=== PATIENT | female | born 1990 | race Caucasian/White ===

== ENCOUNTER 2023-03-12 08:13 | Outpatient (AMB) | payer OTHER, SELFPAY ==
--- NOTE | 2023-03-12 08:35 | AM.OFFWIN_ITS ---
Intake Vital Signs 03/12/23 08:40 Weight 182 lb BP 120/80 Blood Pressure Location Lt brachial Position Sitting Pulse 84 Pulse Source Pulse Oximeter Temp 97.2 F Temp Source Temporal Artery Scan Pulse Oximetry (%) 97 Oxygen Delivery Method Room Air Intake Visit Reasons: APPOINTMENT CLERK Right Eye Redness Patient Tobacco Use Status: Never used Tobacco Allergies Penicillins [PENICILLINS] Allergy (Intermediate, Verified 03/12/23 08:41) RASH amoxicillin [AMOXICILLIN] Allergy (Unknown, Verified 03/12/23 08:41) RASH penicillin V Allergy (Unknown, Verified 03/12/23 08:41) Rash Do you need a note to return to daycare/school/sports/work: Yes HPI APPOINTMENT CLERK Right Eye Redness HPI Details 32-year-old female patient presents toda y with redness right greater than left. This started about 3 days ago, without any inciting events. Left eye started with similar symptoms yesterday. She reports eyes are slightly itchy, however denies pain. Denies any photophobia or vision changes. Is not a contact wearer. She was thinking that this could be allergies, and has been taking [id number] allergy medication and eyedrops without relief. [facility] Social History Patient Tobacco Use Status: Never used Tobacco Review of Systems Const All systems reviewed & are unremarkable except as noted in HPI and below Physical Exam Vital Signs: Last Vital Signs Temp 97.2 F 03/12/23 08:40 Pulse 84 03/12/23 08:40 BP 120/80 03/12/23 08:40 Pulse Ox 97 03/12/23 08:40 Oxygen Delivery Method Room Air 03/12/23 08:40 Const General: cooperative and healthy appearing HEENT Head: Yes normal to inspection Eyes Visual Schmitt: normal visual schmitt by confrontation Alignment and Position: alignment normal Eyelids: Yes eyelids normal Conjunctivae: conjunctival abnormal bilateral conjunctival injection (R>L) diffuse Pupils: Equal, round and reactive pupils present and Pupil accommodation reflex normal EOM: EOMs intact bilaterally Direct Ophthalmoscopy: normal light reflex and no photophobia Neck Neck: Yes no lymphadenopathy Resp Effort & Inspection: normal respiratory effort and able to speak in complete sentences Skin General skin exam: no rashes or lesions noted Neuro Cranial nerves: Yes Equal, round and reactive pupils present Psych Appearance: grossly normal Mental Status: mental status grossly normal Speech and movement: Normal speech and movement present Assessment & Plan Assessment & Plan (1) Conjunctivitis: Code(s): H10.9 - Unspecified conjunctivitis Qualifiers: Conjunctivitis type: acute Acute conjunctivitis type: unspecified Laterality: bilateral Qualified Code(s): H10.33 - Unspecified acute conjunctivitis, bilateral Plan: Patient has a bilateral conjunctivitis right greater than left. She has very minimal discharge, and is not purulent. She has tried oral and otic decongestants/allergy medications without relief. I will see if she improves with Ofloxacin drops. She can also continue lubricating drops as needed. If she develops any worsening redness, or develops any pain, purulent discharge, photophobia, or vision changes, she should return to clinic or contact her inlayer silver for evaluation. She agrees to plan. Work note provided. Medications: New ofloxacin 0.3% 1 drp ophthalmic (eye) QID 10 mL 0RF H10.33 - Unspecified acute conjunctivitis, bilateral Coding Level of Care Code Est Pt Level 3 (57602) Diagnoses Acute conjunctivitis of both eyes, unspecified acute conjunctivitis type H10.33 Conjunctivitis type: acute Acute conjunctivitis type: unspecified Laterality: bilateral
[2023-03-12 08:40] VITALS: BP 120/80; PULSE 84; TEMP 36.2; O2SAT 97
== END 2023-03-12 09:03 | disposition home or self-care (01) ==
PROVIDERS: PCP Internal Medicine; Visit Provider Nurse Practitioner Family
DX: H10.33 Unspecified acute conjunctivitis, bilateral (principal)
CPT/HCPCS: 99213

== ENCOUNTER 2023-06-13 13:11 | Outpatient (REF) | payer OTHER, SELFPAY ==
--- NOTE | ~2023-06-13 | XR_ITS ---
EXAMINATION: XR FOOT, RIGHT CLINICAL INFORMATION: Pain from third through fifth metatarsal. COMPARISON: None available. TECHNIQUE: AP, lateral, and oblique views of the right foot. FINDINGS: The ankle mortise and subtalar joints are normal. There is no evidence of stress fracture, cortical irregularity or periosteal thickening. The soft tissues are normal. The ankle mortise and subtalar joint is normal. XR/XR foot RT min 3V IMPRESSION: Unremarkable right foot exam.
== END 2023-06-13 13:12 | disposition home or self-care (01) ==
LOC: HO.XRAY 13:11
PROVIDERS: PCP Internal Medicine; Visit Provider Internal Medicine
DX: M79.671 Pain in right foot (principal)
CPT/HCPCS: 73630

== ENCOUNTER 2023-06-19 08:04 | Outpatient (AMB) | payer OTHER, SELFPAY ==
--- NOTE | 2023-06-19 08:07 | AM.OFFWIN_ITS ---
Intake Vital Signs 06/19/23 08:14 Height 5 ft 9 in Weight 182 lb BMI 26.9 BP 122/74 Blood Pressure Location Lt brachial Position Sitting Pulse 83 Pulse Source Pulse Oximeter Temp 98.6 F Temp Source Oral Pulse Oximetry (%) 98 Intake Visit Reasons: EST/persistant cough (lobby masked) Intake Note: pt is here for c.o consistent cough and getting worse 1xmonth, had a fever 101 Patient Tobacco Use Status: Never used Tobacco Allergies Penicillins [PENICILLINS] Allergy (Intermediate, Verified 06/19/23 08:14) RASH amoxicillin [AMOXICILLIN] Allergy (Unknown, Verified 06/19/23 08:14) RASH penicillin V Allergy (Unknown, Verified 06/19/23 08:14) Rash Do you need a note to return to daycare/school/sports/work: Yes HPI HPI Comments History of Present Illness Details 32 female patient presents to walk in [facility] with c/o persistent cough x 1 week. [facility] Social History Patient Tobacco Use Status: Never used Tobacco Review of Systems Const All systems reviewed & are unremarkable except as noted in HPI and below Physical Exam Vital Signs: Last Vital Signs Temp 98.6 F 06/19/23 08:14 Pulse 83 06/19/23 08:14 BP 122/74 06/19/23 08:14 Pulse Ox 98 06/19/23 08:14 BMI result Body Mass Index 26.9 Const General: comfortable HEENT Head: Yes normocephalic Ears: external ears normal and TM's normal bilaterally General nose exam: Normal nares present and No nasal discharge present Face and sinus: Yes sinuses nontender Mouth: moist mucous membranes Throat: Yes posterior oropharynx normal Resp Effort & Inspection: normal respiratory effort, no audible wheezes and Actively coughing Auscultation: clear to auscultation bilaterally Cardio Rate: regular rate Rhythm: regular rhythm Assessment & Plan Assessment & Plan (1) Cough in adult: Code(s): R05.9 - Cough, unspecified Plan: - OTC cough/cold remedies - Warm fluids - Acetaminopehn for pain relief. Orders: Orders SARS-CoV2/FLU/RSV Today R05.9 - Cough, unspecified Medications: New dextromethorphan-guaifenesin 5-100 mg/5 mL 10 mL PO Q6-8H PRN 500 mL 0RF cough R05.9 - Cough, unspecified Coding Level of Care Code Est Pt Level 3 (28780) Diagnoses Cough in adult R05.9 Time Spent (min) 15
[2023-06-19 08:14] VITALS: BP 122/74; PULSE 83; TEMP 37; O2SAT 98; BMI 26.9
== END 2023-06-19 08:51 | disposition home or self-care (01) ==
PROVIDERS: PCP Internal Medicine; Visit Provider Nurse Practitioner Family
DX: R05.9 Cough, unspecified (principal)
CPT/HCPCS: 99213

== ENCOUNTER 2023-06-19 13:07 | Outpatient (REF) | payer OTHER, SELFPAY ==
[2023-06-19 14:01] LABS: Influenza A PCR NEGATIVE (Negative); Influenza B PCR NEGATIVE (Negative); Resp Syncy Virus RNA Qual PCR NEGATIVE (Negative); SARS COV2 PCR INHOUSE NEGATIVE (Negative)
== END 2023-06-19 13:08 | disposition home or self-care (01) ==
LOC: HO.LNP 13:07
PROVIDERS: Visit Provider Nurse Practitioner Family
DX: Z11.52 Encounter for screening for COVID-19 (principal); Z20.822 Contact with and (suspected) exposure to COVID-19; R05.9 Cough, unspecified
CPT/HCPCS: 0241U

== ENCOUNTER 2023-07-23 11:27 | Outpatient (REF) | payer OTHER, SELFPAY ==
--- NOTE | ~2023-07-23 | XR_ITS ---
EXAMINATION: XR CHEST CLINICAL INFORMATION: Cough COMPARISON: None available. TECHNIQUE: 2 views of the chest were obtained. FINDINGS: No focal consolidation. No pneumothorax. Trachea is midline. Cardiac mediastinal silhouette is not enlarged. No large pleural effusion. Osseous structures are intact. Soft tissues are unremarkable. XR/XR chest 2V IMPRESSION: No acute cardiopulmonary process.
== END 2023-07-23 11:28 | disposition home or self-care (01) ==
LOC: HO.XRAY 11:27
PROVIDERS: PCP Internal Medicine; Visit Provider Nurse Practitioner Family
DX: R05.9 Cough, unspecified (principal)
CPT/HCPCS: 71046

== ENCOUNTER 2023-12-11 13:20 | Outpatient (AMB) | payer OTHER, SELFPAY ==
[2023-12-11 13:21] VITALS: BMI 26.9
--- NOTE | 2023-12-11 13:21 | A.OFFVIS_ITS ---
Vital Signs 12/11/23 13:21 Height 5 ft 9 in Weight 182 lb 0.006 oz BMI 26.9 Intake Visit Reasons: Piloniadal cyst Intake Note: This patient presents for Piloniadal cyst assessment. Pt c/o; reports no drainage, reports no foul odor, reports discomfort when sitting for prolong periods of time. Credit Administration Manager Required: No Accompanied by: Self / Same As Patient Allergies Penicillins [PENICILLINS] Allergy (Intermediate, Verified 12/11/23 13:26) RASH amoxicillin [AMOXICILLIN] Allergy (Unknown, Verified 12/11/23 13:26) RASH penicillin V Allergy (Unknown, Verified 12/11/23 13:26) Rash Medication List - Last Reconciled 12/11/23 by Dipak Vincent MD dextromethorphan-guaifenesin 5-100 mg/5 mL 10 mL PO Q6-8H PRN etonogestrel-ethinyl estradiol 0.12-0.015 mg/24 hr vag rings vaginal sertraline mg PO HPI HPI Piloniadal cyst: Details: [age] year old female referred for a pilonidal cyst. She has had this area of swelling in the tailbone along with some drainage. She never had an I and D in the past. She says that she has had this for about 2 years but this seems to be worsening the past 2 months or so. She says that often times it is uncomfortable sitting down for long periods of time. [facility] Medical History (Updated 12/11/23 @ 13:41 by Dipak Vincent MD) Pilonidal sinus without abscess Surgical History (Updated 12/11/23 @ 13:27 by Andree Leon [facility]) No pertinent past surgical history Social History Patient Tobacco Use Status: Never used Tobacco Review of Systems Const Denies chills and Denies fever(s) Card Denies chest pain, Denies dyspnea and Denies dyspnea on exertion Resp Denies cough, Denies dyspnea and Denies dyspnea on exertion GI Denies hematochezia and Denies change in bowel habits Denies hematuria Musc Denies back pain and Denies limited range of motion Neuro Denies focal weakness and Denies convulsions Psych Denies depression and Denies mood swings Physical Exam Const General: comfortable and no acute distress Orientation/consciousness: patient oriented x3 Neck Neck: Yes no lymphadenopathy Resp Auscultation: clear to auscultation bilaterally Cardio Rhythm: regular rhythm GI Palpation (GI): Soft to palpation, nontender and no guarding Back/Spine/Pelvis Other: Deep sinus in the sacrococcygeal area consistent with a pilonidal sinus, no induration, no fluctuance at this time Neuro General: patient oriented x3 Assessment & Plan Assessment & Plan (1) Pilonidal sinus without abscess: Code(s): L05.92 - Pilonidal sinus without abscess Category: Medical Plan I explained to her the technique of excision of the pilonidal cyst under anesthesia. I reviewed the risks including but not limited to bleeding, infections, poor healing, intensive wound care, recurrence, postop pain, as well as the benefits and alternatives. I have reviewed with her what to expect postoperatively. She says that she is having some worsening of symptoms with pain. She wants to proceed with surgery and we will schedule this. Coding Level of Care Code New Pt Level 3 (67975) Diagnoses Pilonidal sinus without abscess L05.92
== END 2023-12-11 13:40 | disposition home or self-care (01) ==
PROVIDERS: PCP Internal Medicine; Visit Provider Surgery
DX: L05.92 Pilonidal sinus without abscess (principal)
CPT/HCPCS: 99204

== ENCOUNTER → 2023-12-11 13:20 | Outpatient (BNVA) | payer OTHER, SELFPAY | PROVIDERS: PCP Internal Medicine; Visit Provider Surgery ==

== ENCOUNTER 2023-12-22 11:20 | Outpatient (REF) | payer OTHER, SELFPAY ==
[2023-12-22 11:37] LABS: MANUAL DIFF FLAG NO
[2023-12-22 12:05] LABS: Basophils Percent Auto 0.5 % (0-2); Eosinophils Absolute Auto 0.1 X10*3/uL (0.0-0.4); Hematocrit 37.8 % (37.0-47.0); Hemoglobin 13.1 g/dl (12.0-16.0); Imm Gran Abs Auto 0.02 X10*3/uL (0.00-0.03); Imm Gran Pct Auto 0.3 % (0.0-0.4); Lymphocytes Absolute Auto 1.9 X10*3/uL (1.2-4.9); Lymphocytes Percent Auto 29.4 % (20-40); Mean Corpuscular HGB Conc 34.7 g/dl (31.0-35.0); Mean Corpuscular Hemoglobin 29.3 pg (27.0-33.0); Mean Corpuscular Volume 84.6 fL (80.0-98.0); Mean Platelet Volume 9.8 fL (9.4-12.3); Monocytes Absolute Auto 0.4 X10*3/uL (0.1-1.2); Monocytes Percent Auto 6.4 % (2-11); Neutrophils Absolute Auto 3.9 x10*3/uL (2.0-8.3); Neutrophils Percent Auto 61.4 % (45-73); Platelet Count 217 X10*3/uL (160-400); Red Blood Count 4.47 X10*6/uL (4.20-5.50); Red Cell Distribution Width 12.6 % (11.0-16.0); White Blood Count 6.4 X10*3/uL (4.8-10.8)
[2023-12-22 12:39] LABS: Alanine Aminotransferase 20 U/L (0-31); Alkaline Phosphatase 83 U/L (39-117); Anion Gap 13 (12-20); Aspartate Amino Transferase 20 U/L (5-31); Bilirubin Total 0.2 mg/dL (0.0-1.0); Blood Urea Nitrogen 17 mg/dL (9-16); Calcium 9.7 mg/dL (8.4-10.2); Carbon Dioxide 23 mmol/L (22-29); Chloride 108 mmol/L (96-108); Cholesterol 253 mg/dL (<200); Estimated Glomerular Filt Rate > 60; Glucose Random 95 mg/dL (60-115); HDL Cholesterol 54 mg/dL (>40); Potassium 4.4 mmol/L (3.3-5.1); Sodium 140 mmol/L (135-145); Total Protein 7.4 g/dL (6.5-8.0)
[2023-12-22 12:51] LABS: Free T4 (Free Thyroxine) 0.76 ng/dL (0.71-1.85)
[2023-12-23 19:08] LABS: LDL Cholesterol Direct 184 mg/dL (<100)
== END 2023-12-22 11:21 | disposition home or self-care (01) ==
LOC: HO.LAB 11:20
PROVIDERS: PCP Internal Medicine; Visit Provider Nurse Practitioner Adult Health
DX: Z13.220 Encounter for screening for lipoid disorders (principal)
CPT/HCPCS: 36415; 80053; 82465; 83718; 83721; 84439; 84443; 85025

== ENCOUNTER 2024-04-22 11:59 | Outpatient (REF) | payer OTHER, SELFPAY ==
--- NOTE | ~2024-04-22 | MR_ITS ---
EXAMINATION: MR LUMBAR SPINE WITHOUT CONTRAST CLINICAL INFORMATION: Left lumbar radiculopathy COMPARISON: None available. TECHNIQUE: MRI of the lumbar spine was obtained using routine sequences without contrast. FINDINGS: There are 5 nonrib-bearing bearing lumbar type vertebrae. Normal alignment. No acute bone marrow abnormality. The vertebral body heights are preserved. Disc desiccation at L2-3 without significant disc height loss. The visualized spinal cord is normal in caliber. No abnormal cord signal. The conus medullaris terminates at L1. T12-L1: No significant spinal canal or neural foraminal narrowing. L1-2: No significant spinal canal or neural foraminal narrowing. L2-3: Shallow disc bulge. No significant spinal canal or neural foraminal narrowing. L3-4: No significant spinal canal or neural foraminal narrowing. L4-5: No significant spinal canal or neural foraminal narrowing. L5-S1: Bilateral facet arthrosis. No significant spinal canal or neural foraminal narrowing. The paravertebral soft tissues are unremarkable. MR/MR lumbar spine wo con IMPRESSION: Mild degenerative changes of the lumbar spine without significant spinal canal or neural foraminal narrowing. Electronically signed by: Cory Hickey MD 04/22/2024 04:15 PM [facility]
== END 2024-04-22 12:00 | disposition home or self-care (01) ==
LOC: HO.MRI 11:59
DX: M51.17 Intervertebral disc disorders with radiculopathy, lumbosacral region (principal)
CPT/HCPCS: 72148

== ENCOUNTER → 2024-05-25 12:49 | Outpatient (BNVA) | payer OTHER, SELFPAY | PROVIDERS: PCP Internal Medicine; Visit Provider Physician Assistant Medical | DX: Z13.89 Encounter for screening for other disorder (principal) | CPT/HCPCS: 92002; 99203 ==

== ENCOUNTER 2024-06-06 10:09 | Emergency (ER) | payer OTHER, SELFPAY ==
--- NOTE | ~2024-06-06 | MR_ITS ---
CLINICAL HISTORY: lower back pain, saddle numbness, r o cauda equina MR lumbar spine without gadolinium Comparison: MR/SR - MR LUMBAR SPINE WO CON - 04/22/24 12:03 EST Findings: Normal alignment. No acute fracture or pathologic bone lesion. Cauda equina and conus medullaris within normal limits. L1-L2: Normal L2-L3: Partial disc desiccation and very mild broad-based disc bulge. No significant central canal or neural foraminal narrowing. No significant change since the prior study. L3-L4: Normal L4-L5: Normal L5-S1: Very small central disc bulge without mass effect on the thecal sac. Very mild facet osteoarthritis. No neural foraminal narrowing. No significant change since the prior study. IMPRESSION: Very mild spondylosis at L2-L3 and L5-S1. No central canal or neural foraminal stenosis. This document has been electronically signed by: Soo Burt MD on 06/06/2024 14:42:02
[2024-06-06 10:16] VITALS: BP 121/75; PULSE 97; RESP 18; TEMP 36.6; O2SAT 96; BMI 11.0
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
--- OUTSIDE RECORDS SUMMARY | 2024-06-06 12:29 | XMS_ITS | Continuity of Care Document ---
[facility] Address [address] [place] [id number]- Care Team Providers Care Construction Director Name Role Phone Kirill Jo MD Primary Care Physician Encounter [facility] [place] Date(s): 04/19/24 - 05/19/24 [facility] Adult [address] [place] [address]- Encounter Type: Triage Allergies, Adverse Reactions, Alerts Substance Criticality Severity Reaction Reaction Severity Status penicillins Active Immunizations Given and Recorded Vaccine Date Status Refusal Reason influenza virus vaccine, inactivated 02/27/23 Jean Claude rded influenza virus vaccine, inactivated 01/01/21 Jean Claude rded influenza virus vaccine, inactivated 01/19/20 Jean Claude rded influenza virus vaccine, inactivated 01/27/18 Jean Claude rded influenza virus vaccine, inactivated 02/10/17 Jean Claude rded influenza virus vaccine, inactivated 01/20/17 Jean Claude rded influenza virus vaccine, inactivated 03/01/16 Jean Claude rded influenza virus vaccine, inactivated 1 02/10/16 Re corded influenza virus vaccine, inactivated 02/01/15 Give n influenza virus vaccine, inactivated 02/01/14 Jean Claude rded influenza virus vaccine, inactivated 2 01/31/14 Gi edwin influenza virus vaccine, inactivated 04/29/13 Give n Influenza Virus Vaccine (oldterm) 3 01/10/22 Recor ded Influenza Virus Vaccine (oldterm) 01/15/19 Recorde d SARS-CoV-2 (COVID-19) mRNA BNT-162b2 vac 02/22/21 Recorded SARS-CoV-2 mRNA (ohihvby-vwuq-nwcgo) vax 4 05/22/20 Recorded SARS-CoV-2 mRNA (rhrymoh-ldtf-lygfy) vax 5 05/01/20 Recorded pneumococcal 23-valent vaccine 10/14/19 Given tetanus/diphtheria/pertussis, acel(Tdap) 12/21/18 Given Fluzone (oldterm) 6 05/27/12 Given Tet/Diphth/Acel, Pertussis (oldterm) 12/18/07 Give n Human Papillomavirus Vaccine 09/10/07 Recorded Human Papillomavirus Vaccine 03/12/07 Recorded Human Papillomavirus Vaccine 12/10/06 Recorded Hepatitis B Vaccine (old term) 04/04/93 Given Hepatitis B Vaccine (old term) 92 Given Hepatitis B Vaccine (old term) 92 Given 1Location History: [facility] [place] EMPLOYER 2[facility]: [facility] 4Result Comment: Pfizer COVID vaccine 5Result Comment: Pfizer COVID vaccine 6Admin Note[facility] NuvaRing 0.015 mg-0.120 mg vaginal ring 1 each, Vaginally, 0 Refills, Maintenance, 10/25/22 8:55:00 AM EDT, Partial fill upon patient request if the prescription is for a schedule II opioid drug. Start Date: 10/25/22 Status: Ordered Repeat number: 1 sertraline 100 mg oral tablet 1.5 tablet, By Mouth, Daily, # 45 tablet, 5 Refills, Maintenance, 01/12/24 10:25:00 AM EDT, [id number], 173.3, cm, 01/02/24 9:30:00 EDT, Height Start Date: 01/12/24 Status: Ordered Quantity: 45.0 Unit: tablet Repeat number: 6 Ventolin HFA 108 mcg/inh inhalation aerosol with adapter 2 puffs, Inhalation, Every 6 hours, PRN for wheezing, # 8 Gm, 6 Refills, Maintenance, 12/19/23 11:09:00 AM EDT, Aerosol, [id number], Partial fill upon patient request if the prescription is fora schedule II opioid drug., 173.3, cm, 12/19/23 10:44:00 EDT, Height Start Date: 12/19/23 Status: Ordered Quantity: 8.0 Unit: g Repeat number: 7 Problem List Condition Confirmation Course Effective Dates Status Health Status Informant Allergic rhinitis Confirmed Active Anxiety Confirmed Active Exercise-induced asthma Confirmed Active Familial hypercholesteremia Confirmed Active History of appendectomy 1 Confirmed Active Low back pain Confirmed Active Motion sickness Confirmed Active Pilonidal cyst without abscess Confirmed Active 24/12/16 - [facility] Social History Social History Type Response Smoking Status Never smoker entered on: 12/20/15 Sex Sex Representation Female (finding) Patient Care team information Care Team Personnel Name: Deysi MALAVE, Kirill Victoria Position: [facility] Physician - Primary Care Member Role: PCP Address: [address] [place] [phone]- Telecom: Care Team Related Persons Name: TORY DSOUZA Name: ELISABETH DSOUZA Insurance Providers Guarantor name: DALE MEET Health Plan Information #: 1 Payer: BLUE BENEFIT BBA PPO Member Number: NA Policy Number: NA Group Number: NA
--- OUTSIDE RECORDS SUMMARY | 2024-06-06 12:29 | XMS_ITS | Continuity of Care Document ---
Author Organization [facility] Isaias lt Address [address] [place] [id number]- Care Team Providers Care Dropper Tank Storage Name Role Phone Kirill Jo MD Primary Care Physician [phone] [place]counter [facility] [place](s[place] 04/27/24 - 05/27/24 [facility] Adult [address] [place] [address]- Encounter Type: Triage Allergies, Adverse Reactions, Alerts [...] mRNA BNT-162b2 vac 02/22/21 Recorded SARS-CoV-2 mRNA (bzymljf-vnah-etewd) vax 4 05/22/20 Recorded SARS-CoV-2 mRNA (fbutgbm-koty-fbywx) vax 5 05/01/20 Recorded pneumococcal 23-valent vaccine 10/14/19 Given tetanus/diphtheria/pertussis, acel(Tdap) 12/21/18 Given Fluzone (oldterm) 6 05/27/12 Given Tet/Diphth/Acel, Pertussis (oldterm) 12/18/07 Give n Human Papillomavirus Vaccine 09/10/07 Recorded Human Papillomavirus Vaccine 03/12/07 Recorded Human Papillomavirus Vaccine 12/10/06 Recorded Hepatitis B Vaccine (old term) 04/04/93 Given Hepatitis B Vaccine (old term) 92 Given Hepatitis B Vaccine (old term) 92 Given [place] [facility] [place] [facility]: [facility]: [...] cyst without abscess Confirmed Active 24/12/16 [place] [facility] [place] Social History Social History Type Response Smoking Status Never smoker entered on: 12/20/15 Sex Sex Representation Female (finding) Patient Care team information Care Team Personnel Name: Deysi MALAVE, Kirill Victoria Position: [facility] Physician - Primary Care Member Role: PCP Address: [address] [place] [phone]- Telecom: Care Team Related Persons Name: TORY DSOUZA Name: ELISABETH DSOUZA Insurance Providers Guarantor name: DALE MEET Health Plan Information #: 1 Payer: BLUE BENEFIT BBA PPO Member Number: NA Policy Number: NA Group Number: NA
--- OUTSIDE RECORDS SUMMARY | 2024-06-06 12:29 | XMS_ITS | Continuity of Care Document ---
[facility] Address [address] [place] [phone]- Care Team Providers Care Booking Manager Name Role Phone Kirill Jo MD Primary Care Physician Encounter [facility] [place] Date(s): 04/20/24 - 05/20/24 [facility] Adult [address] [place] [address]- Encounter Type: Triage Allergies, Adverse Reactions, Alerts [...] mRNA BNT-162b2 vac 02/22/21 Recorded SARS-CoV-2 mRNA (valzxte-ziph-cbgnk) vax 4 05/22/20 Recorded SARS-CoV-2 mRNA (niopzvh-jkgg-jfguk) vax 5 05/01/20 Recorded pneumococcal 23-valent vaccine 10/14/19 Given tetanus/diphtheria/pertussis, acel(Tdap) 12/21/18 Given Fluzone (oldterm) 6 05/27/12 Given Tet/Diphth/Acel, Pertussis (oldterm) 12/18/07 Give n Human Papillomavirus Vaccine 09/10/07 Recorded Human Papillomavirus Vaccine 03/12/07 Recorded Human Papillomavirus Vaccine 12/10/06 Recorded Hepatitis B Vaccine (old term) 04/04/93 Given Hepatitis B Vaccine (old term) 92 Given Hepatitis B Vaccine (old term) 92 Given 1Location History[place] [facility] [place] 2[facility]: [facility]: [...] cyst without abscess Confirmed Active 24/12/16 - [facility] [place] Social History Social History Type Response Smoking Status Never smoker entered on: 12/20/15 Sex Sex Representation Female (finding) Patient Care team information Care Team Personnel Name: Deysi MALAVE, Kirill Victoria Position: [facility] Physician - Primary Care Member Role: PCP Address: [address] [place] [phone]- Telecom: Care Team Related Persons Name: TORY DSOUZA Name: ELISABETH DSOUZA Insurance Providers Guarantor name: DALE MEET Health Plan Information #: 1 Payer: BLUE BENEFIT BBA PPO Member Number: NA Policy Number: NA Group Number: NA
--- OUTSIDE RECORDS SUMMARY | 2024-06-06 12:29 | XMS_ITS | Continuity of Care Document ---
Author Organization [facility] Isaias lt Address [address] [place] [address]- Care Team Providers Care C4 Planner Name Role Phone Kirill Jo MD Primary Care Physician [facility] Date(s): 05/03/24 - 06/02/24 [facility] Adult [address] [place] [address]- Attending Physician: Admtr, Ar8 Admitting Physician: Admtr, Ar8 Referring Physician: Admtr, Ar8 Encounter Type: Triage Allergies, Adverse Reactions, Alerts [...] mRNA BNT-162b2 vac 02/22/21 Recorded SARS-CoV-2 mRNA (gttkqoh-pfje-ekjmi) vax 4 05/22/20 Recorded SARS-CoV-2 mRNA (vbfdyip-xykd-hbjfv) vax 5 05/01/20 Recorded pneumococcal 23-valent vaccine 10/14/19 Given tetanus/diphtheria/pertussis, acel(Tdap) 12/21/18 Given Fluzone (oldterm) 6 05/27/12 Given Tet/Diphth/Acel, Pertussis (oldterm) 12/18/07 Give n Human Papillomavirus Vaccine 09/10/07 Recorded Human Papillomavirus Vaccine 03/12/07 Recorded Human Papillomavirus Vaccine 12/10/06 Recorded Hepatitis B Vaccine (old term) 04/04/93 Given Hepatitis B Vaccine (old term) 92 Given Hepatitis B Vaccine (old term) 92 Given 1Location History: [facility] [place] [facility] [facility]: [facility] 3Result Comment[facility] Flu shot [facility] 4Result Comment: Pfizer COVID vaccine 5Result Comment: Pfizer COVID vaccine 6Admin Note: [facility] Medications NuvaRing 0.015 mg-0.120 mg vaginal ring [...] Pilonidal cyst without abscess Confirmed Active 24/12/16 [facility] Social History Social History Type Response Smoking Status Never smoker entered on: 12/20/15 Sex Sex Representation Female (finding) EKG study * Event Display: EKG Authored Date: Laboratory * Event Display: Laboratory Result Scanned Authored Date: * Event Display: Laboratory Result Scanned Authored Date: XR Chest Views * Event Display: X-Ray Chest Authored Date: * Event Display: X-Ray Chest Authored Date: Radiology * Event Display: X-Ray Ankle/Foot, Non- BH Authored Date: MR Spine * Event Display: MRI Spine Authored Date: Patient Care team information Care Team Personnel Name: Kirill Jo MD Position: [facility] Physician - Primary Care Member Role: PCP Address: [address] [place] [id number] Telecom: Care Team Related Persons Name: TORY DSOUZA Name: ELISABETH DSOUZA Insurance Providers Guarantor name: DALE MEET [facility] Information #: 1 Payer: BLUE BENEFIT BBA PPO Member Number: NA Policy Number: NA Group Number: NA
--- OUTSIDE RECORDS SUMMARY | 2024-06-06 12:29 | XMS_ITS | Continuity of Care Document ---
Author Organization [facility] Isaias lt Address [address] [place] [address]- Care Team Providers Care Boiler Or Engine Operator Name Role Phone Kirill Jo MD Primary Care Physician Encounter [facility] Date(s): 04/20/24 - 06/02/24 [facility] Adult [address] [place] [address]- Attending Physician: Not on Staff, Attending MD Encounter Type: Pre Office Visit Allergies, Adverse Reactions, Alerts Substance Criticality Severity [...] mRNA BNT-162b2 vac 02/22/21 Recorded SARS-CoV-2 mRNA (gwtugun-fcst-unhng) vax 4 05/22/20 Recorded SARS-CoV-2 mRNA (iqbjdtm-biit-cypna) vax 5 05/01/20 Recorded pneumococcal 23-valent vaccine 10/14/19 Given tetanus/diphtheria/pertussis, acel(Tdap) 12/21/18 Given Fluzone (oldterm) 6 05/27/12 Given Tet/Diphth/Acel, Pertussis (oldterm) 12/18/07 Give n Human Papillomavirus Vaccine 09/10/07 Recorded Human Papillomavirus Vaccine 03/12/07 Recorded Human Papillomavirus Vaccine 12/10/06 Recorded Hepatitis B Vaccine (old term) 04/04/93 Given Hepatitis B Vaccine (old term) 92 Given Hepatitis B Vaccine (old term) 92 Given 1Location History[place] [facility] [place] [facility] 4Result Comment: Pfizer COVID vaccine 5Result Comment: Pfizer COVID vaccine 6Admin Note: [facility] Medications NuvaRing 0.015 mg-0.120 mg vaginal ring [...] Pilonidal cyst without abscess Confirmed Active 24/12/16 [facility] Social History Social History Type Response Smoking Status Never smoker entered on: 12/20/15 Sex Sex Representation Female (finding) Patient Care team information Care Team Personnel Name: Kirill Jo MD Position: [facility] Physician - Primary Care Member Role: PCP Address: [address] [place] [address]- Telecom: Care Team Related Persons Name: TORY DSOUZA Name: ELISABETH DSOUZA Insurance Providers Guarantor name: DALE DSOUZA Health Plan Information #: 1 Payer: BLUE BENEFIT [employer] PPO Member Number: [id number] Policy Number: NA Group Number: [id number] Health Plan Information #: 2 Payer: BLUE BENEFIT [employer]BA PPO Member Number: [id number] Policy Number: NA Group Number: [id number]
--- OUTSIDE RECORDS SUMMARY | 2024-06-06 12:29 | XMS_ITS | Clinical Summary ---
Author Organization [facility] Address [address] [place] [address] Phone Care Team Providers Care Marine Fire Fighter Name Role Phone Unavailable Primary Care Provider Unavailabl e Immunizations Name Administration Dates Next Due DTP 03/20/1994, 3,01/22/1993,11/09 DTaP 5 12/08/1997 HPV, Quadrivalent 07/23/2007,03/12/2007,01/03/20 07 Hep B, ped/adol 04/04/1993,1992 Hib (PRP-T) 01/23/1994, 3,01/22/1993,11/19 Influenza, injectable, trivalent 06/15/2009 MMR 11/17/1996,01/23/1994 Meningococcal Conj (Menactra) MCV4P 01/02/2007 OPV 12/08/1997, 4,01/22/1993,11/09 Td (adult) (MBL), 2 Lf tetan us toxoid, PF, adsorbed 12/05/2003 Tdap 01/08/2008 Family History Relation Name Status Comments Brother Alive Brother: Alive and well Father Father: Elevate d cholesterol Maternal Grandmother Materna l aunt: Cancer -breast Mother Alive Mother: Deafnes s Other Family history of Diabetes mellitus, Family history of Asthma Sister Alive Sister: Alive a nd well Social History Tobacco Use Types Packs/Day Years Used Date Smoking Tobacco: Never Assessed Comments Unknown Sex and Gender Information Value Date Recorded Sex Assigned at Not on file Legal Sex Female 4:37 PM EDT Gender Identity Not on file Sexual Orientation Not on file Last Filed Vital Signs Vital Sign Reading Time Taken Comments Blood Pressure 106/66 12/28/2009 12:00 AM EDT Pulse - - Temperature 36.6 ??C (97.8 ??F) 09/20/2009 12:00 AM E DT Respiratory Rate - - Oxygen Saturation - - Inhaled Oxygen Concentration - - Weight 56.2 kg (124 lb) 12/28/2009 12:00 AM EDT Height 172.7 cm (5' 8 ) 12/28/2009 12:00 AM EDT Body Mass Index 18.85 12/28/2009 12:00 AM EDT Plan of Treatment Health Maintenance Due Date Last Done Comments Hepatitis B Vaccines (3 of 3 - 3-dose series) 05/30/1993 04/04/1993, 1992 Varicella Vaccines (1 of 2 - 13+ 2-dose series) 2005 DTaP,Tdap,and Td Vaccines (7 - Td or Tdap) 01/07/2018 01/08/2008, 12/05/2003, 12/08/1997, Additional history exists Influenza Vaccines (#1) 2023 06/15/2009 COVID-19 Vaccine ( season) 2024 HIB Vaccines Completed 01/23/1994, 03/13, 01/22/1993, Additional history exists MMR Vaccines Completed 11/17/1996, 01/23/1994 IPV Vaccines Completed 12/08/1997, 03/12, 01/22/1993, Additional history exists Meningococcal Vaccine Aged Out 01/02/2007 No kehinde annette eligible based on patient's age to complete this topic HPV Vaccines Completed 07/23/2007, 05/2006, 01/02/2007 Hepatitis A Vaccines Aged Out No long er eligible based on patient's age to complete this topic Men B Vaccine Aged Out No longer elig ible based on patient's age to complete this topic Pneumococcal Vaccine Aged Out No long er eligible based on patient's age to complete this topic
--- OUTSIDE RECORDS SUMMARY | 2024-06-06 12:29 | XMS_ITS | Encounter Summary ---
Author Organization [facility] Address [address] [place] [address] Phone Care Team Providers Care Corporate Strategy Intern Name Role Phone Veronica Maldonado MD Primary Care Provider [phone] Encounter Details Date Type Department Care Team (Late st Contact Info) Description 12/26/2016 Conversion Encounter [facility] [address] [place] [address] Social History Tobacco Use Types Packs/Day Years Used Date Smoking Tobacco: Never Assessed Comments Unknown Sex and Gender Information Value Date Recorded Sex Assigned at Not on file Legal Sex Female 4:37 PM EDT Gender Identity Not on file Sexual Orientation Not on file documented as of this encounter Plan of Treatment Not on file documented as of this encounter Visit Diagnoses Not on filedocumented in this encounter Care Teams Corporate Strategy Intern Relationship Specialty Start Date End Date Veronica Maldonado MD [address] [place] [address] PCP - General 12/20/16 08/19/22 documented as of this encounter
--- OUTSIDE RECORDS SUMMARY | 2024-06-06 12:29 | XMS_ITS | Encounter Summary ---
Author Organization [facility] Address [address] [place] [address] Phone Care Team Providers Care Medical Imaging Specialist Name Role Phone Veronica Maldonado MD Primary Care Provider [phone] Encounter Details Date Type Department Care Team (Late st Contact Info) Description 04/12/2011 Documentation [facility] [place] [address] [place] [address] Family Medicine, Physician [address] [place] [address] Social History Tobacco Use Types Packs/Day Years [...] on filedocumented in this encounter Care Teams Medical Imaging Specialist Relationship Specialty Start Date End Date Veronica Maldonado MD [address] [place], [place] [address] [address] PCP - General 12/20/16 08/19/22 documented as of this encounter
[2024-06-06 12:31] LABS: MANUAL DIFF FLAG NO
[2024-06-06 12:33] LABS: Basophils Percent Auto 0.4 % (0-2); Eosinophils Absolute Auto 0.1 X10*3/uL (0.0-0.4); Eosinophils Percent Auto 1.9 % (0-4); Hemoglobin 14.4 g/dl (12.0-16.0); Imm Gran Abs Auto 0.01 X10*3/uL (0.00-0.03); Imm Gran Pct Auto 0.1 % (0.0-0.4); Lymphocytes Absolute Auto 2.3 X10*3/uL (1.2-4.9); Lymphocytes Percent Auto 33.4 % (20-40); Mean Corpuscular HGB Conc 35.1 g/dl (31.0-35.0); Mean Corpuscular Hemoglobin 28.9 pg (27.0-33.0); Mean Corpuscular Volume 82.2 fL (80.0-98.0); Mean Platelet Volume 9.7 fL (9.4-12.3); Monocytes Absolute Auto 0.6 X10*3/uL (0.1-1.2); Monocytes Percent Auto 8.5 % (2-11); Neutrophils Absolute Auto 3.9 x10*3/uL (2.0-8.3); Neutrophils Percent Auto 55.7 % (45-73); Platelet Count 227 X10*3/uL (160-400); Red Blood Count 4.99 X10*6/uL (4.20-5.50); Red Cell Distribution Width 12.1 % (11.0-16.0)
[2024-06-06 12:33] LABS: Appearance Urine Clear; Color Urine Yellow; Glucose Urine UA Negative (Negative); Leukocyte Esterase Urine Trace (Negative); Nitrite Urine Negative (Negative); UMIC TRIGGER UACC YES; Urine Blood Negative (Negative); Urine Ketones Negative (Negative); Urine Protein Negative (Neg-Trace)
[2024-06-06 12:35] LABS: Bacteria Urine Trace (None Seen); Hyaline Casts Urine 0-2 /LPF (0-2); RBC Urine 0-2 /HPF (0-2); Squamous Epithelial Cell Urine 0-2 /HPF (0-2); WBC Urine 0-5 /HPF (0-5)
[2024-06-06 12:36] LABS: UPreg QC Valid YES; Urine Pregnancy NEGATIVE (NEGATIVE)
[2024-06-06 12:49] LABS: Alanine Aminotransferase 21 U/L (0-31); Albumin Level 4.2 g/dL (3.5-5.0); Alkaline Phosphatase 79 U/L (39-117); Anion Gap 11 (12-20); Aspartate Amino Transferase 23 U/L (5-31); Bilirubin Direct 0.1 mg/dL (0.0-0.5); Bilirubin Total 0.3 mg/dL (0.0-1.0); Blood Urea Nitrogen 12 mg/dL (9-16); Calcium 9.6 mg/dL (8.4-10.2); Carbon Dioxide 23 mmol/L (22-29); Chloride 109 mmol/L (96-108); Creatinine Clr Calc Pharmacy 116.8; Estimated Glomerular Filt Rate > 60; Glucose Random 93 mg/dL (60-115); Potassium 4.2 mmol/L (3.3-5.1); Sodium 139 mmol/L (135-145); Total Protein 8.1 g/dL (6.5-8.0)
== END 2024-06-06 15:22 | disposition home or self-care (01) ==
PROVIDERS: Nurse Practitioner Family; Emergency Provider Emergency Medicine; PCP Internal Medicine
DX: M54.50 Low back pain, unspecified (principal); R20.0 Anesthesia of skin; M47.897 Other spondylosis, lumbosacral region; Z79.899 Other long term (current) drug therapy
CPT/HCPCS: 36415; 72148; 80048; 80076; 81001; 81025; 85025; 99284

== ENCOUNTER 2025-02-07 12:16 | Outpatient (AMB) | payer OTHER, SELFPAY ==
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
[2025-02-07 12:18] VITALS: BP 128/80; PULSE 88; RESP 16; O2SAT 98; BMI 28.8
--- OUTSIDE RECORDS SUMMARY | 2025-02-07 13:32 | XMS_ITS | Encounter Summary ---
Author Organization [facility] Address [address] [place] [address] Phone Care Team Providers Care Psychiatry Physician Name Role Phone Veronica Maldonado MD Primary Care Provider [phone] Encounter Details Date Type Department Care Team (Late st Contact Info) Description 12/26/2016 Conversion Encounter [facility] [address] [place] [address] Social History Tobacco Use Types Packs/Day Years [...] on filedocumented in this encounter Care Teams Psychiatry Physician Relationship Specialty Start Date End Date Veronica Maldonado MD [address] [place] [address] PCP - General 12/20/16 08/19/22 documented as of this encounter
--- OUTSIDE RECORDS SUMMARY | 2025-02-07 13:32 | XMS_ITS | Encounter Summary ---
Author Organization [facility] Address [address] [place] [address] Phone Care Team Providers Care Mapping Specialist Name Role Phone Veronica Maldonado MD Primary Care Provider Encounter Details Date Type Department Care Team (Late st Contact Info) Description 04/12/2011 Documentation [facility] [place] [address] [place] [address] Family Medicine, Physician [address] [place] [address] Social History Tobacco Use Types [...] on filedocumented in this encounter Care Teams Mapping Specialist Relationship Specialty Start Date End Date Veronica Maldonado MD [address] [place], [place] [address] [address] PCP - General 12/20/16 08/19/22 documented as of this encounter
--- OUTSIDE RECORDS SUMMARY | 2025-02-07 13:32 | XMS_ITS | Clinical Summary ---
Author Organization [facility] Address [address] [place] [address] Phone Care Team Providers Care Tax Accounting Assistant Name Role Phone Unavailable Primary Care Provider Unavailabl e Immunizations Immunization Administration Dates Next Due DTP 03/20/1994, 3,01/22/1993,11/09 [...] AM EDT Pulse - - Temperature 36.6 C (97.8 F) 09/20/2009 12:00 AM EDT Respiratory Rate - - Oxygen Saturation - [...] 12/08/1997, Additional history exists Influenza Vaccines (#1) 2024 06/15/2009 COVID-19 Vaccine ( season) 2025 HIB Vaccines Completed 01/23/1994, 03/13, 01/22/1993, Additional [...]
== END 2025-02-07 13:16 | disposition home or self-care (01) ==
PROVIDERS: PCP Internal Medicine; Visit Provider Internal Medicine
DX: M51.360 Other intervertebral disc degeneration, lumbar region with discogenic back pain only (principal)
CPT/HCPCS: 99203

== ENCOUNTER 2025-02-28 11:02 | Outpatient (RCR) | payer OTHER, SELFPAY | END 2025-04-14 12:45 | disposition home or self-care (01) | LOC: HO.PT 11:02 | PROVIDERS: PCP Internal Medicine; Visit Provider Physician Assistant | DX: M54.50 Low back pain, unspecified (principal) | CPT/HCPCS: 97012; 97014; 97110; 97140; 97161; 97530; 97535 ==

== ENCOUNTER 2025-03-30 10:43 | Outpatient (AMB) | payer OTHER, SELFPAY ==
--- NOTE | 2025-03-30 10:45 | MHC.OFFVIS ---
Vital Signs 03/30/25 10:46 Height 5 ft 9 in Weight 193 lb BMI 28.5 BP 118/70 Blood Pressure Location Lt brachial Position Sitting Respiration 16 Pulse 70 Pulse Source Pulse Oximeter Pulse Oximetry (%) 98 Oxygen Delivery Method Room Air Intake Visit Reasons: follow up low back pain Chrome Tanning Drum Operator Required: No Allergies Penicillins (PENICILLINS) Allergy (Intermediate, Verified 03/30/25 10:48) RASH amoxicillin (AMOXICILLIN) Allergy (Unknown, Verified 03/30/25 10:48) RASH Medication List - Last Reconciled 03/30/25 by Dania Tejeda LPN cyclobenzaprine 10 mg PO TID PRN etonogestrel-ethinyl estradiol 0.12-0.015 mg/24 hr vag rings vaginal sertraline mg PO HPI HPI follow up low back pain: Details: History of Present Illness The patient is a 34-year-old female presenting with persistent pain related to pelvic floor muscle tightness and sacroiliac joint discomfort. The pain has been consistent and has not improved significantly over time. She has been engaging in physical activities such as swimming, walking, and cycling as part of her pain management strategy. Pelvic floor physical therapy revealed extraordinarily tight pelvic floor muscles, contributing to her discomfort. The therapist was unable to access the sacrum area due to the tightness, which is likely exacerbating her sacroiliac joint pain. The patient is considering additional xgv-rk-eusrav pelvic floor therapy sessions to address these issues. Pain Description - Persistent pain with no significant improvement over time - Pain related to extraordinarily tight pelvic floor muscles - Sacroiliac joint pain likely exacerbated by pelvic floor muscle tightness - Engages in swimming, walking, and cycling as part of pain management Physical Exam - Appears afebrile. - Alert and oriented. - Mood and affect appropriate. - Follows and participates in conversation appropriately. - Respiratory effort is unlabored. Pain Management - Affect: Pain is persistent, impacting daily activities. - Activities of Daily Living: Engages in swimming, walking, and cycling to manage pain. [facility] Medical History (Updated 02/10/25 @ 13:23 by Ari Lopez MD) Exercise-induced asthma Anxiety Allergic rhinitis Low back pain Pilonidal sinus without abscess Surgical History No pertinent past surgical history Social History Patient Tobacco Use Status: Never used Tobacco Physical Exam Vital Signs: Last Vital Signs Pulse 70 03/30/25 10:46 Resp 16 03/30/25 10:46 BP 118/70 03/30/25 10:46 Pulse Ox 98 03/30/25 10:46 Oxygen Delivery Method Room Air 03/30/25 10:46 BMI result Body Mass Index 28.5 Assessment & Plan Assessment & Plan (1) Low back pain: Code(s): M54.50 - Low back pain, unspecified Category: Medical Plan Plan Patient was informed and verbally consented to the use of an ambient scribe for clinic note documentation during this visit. 1. Pelvic Floor Muscle Tightness - Continue pelvic floor physical therapy to address muscle tightness. 2. Sacroiliac Joint Pain - Address sacroiliac joint pain through continued physical therapy and exercise. - Cleared to return to work. Discussion Notes During the consultation, we discussed the persistent nature of the patient's pain and the role of pelvic floor physical therapy in managing her symptoms. The patient was advised to continue with her current physical activities and consider additional therapy sessions to address the tightness in her pelvic floor muscles. Patient Instructions - Continue with swimming, walking, and cycling as part of your pain management routine. - Attend pelvic floor physical therapy sessions regularly. - Consider additional [id number]-[id number] therapy sessions if needed. Coding Level of Care Code Est Pt Level 3 (49194) Diagnoses Low back pain M54.50
[2025-03-30 10:46] VITALS: BP 118/70; PULSE 70; RESP 16; O2SAT 98; BMI 28.5
--- OUTSIDE RECORDS SUMMARY | 2025-03-30 21:05 | XMS_ITS | Encounter Summary ---
Author Organization [facility] Address [address] [place] [address] Phone Care Team Providers Care Electrical Maintenance Man Name Role Phone Veronica Maldonado MD Primary Care Provider [phone] Encounter Details Date Type Department Care Team (Late st Contact Info) Description 12/26/2016 Conversion Encounter [facility] [address] [place] [address] Social History Tobacco Use Types Packs/Day Years [...] on filedocumented in this encounter Care Teams Electrical Maintenance Man Relationship Specialty Start Date End Date Veronica Maldonado MD [address] [place] [address] PCP - General 12/20/16 08/19/22 documented as of this encounter
--- OUTSIDE RECORDS SUMMARY | 2025-03-30 21:05 | XMS_ITS | Encounter Summary ---
Author Organization [facility] Address [address] [place] [address] Phone Care Team Providers Care Machinery Dismantler Name Role Phone Veronica Maldonado MD Primary Care Provider Encounter Details Date Type Department Care Team (Late st Contact Info) Description 04/12/2011 Documentation [facility] [place] Family Medicine [address] [place] [address] Family Medicine, Physician [address] [place] [address] Social History Tobacco Use Types [...] on filedocumented in this encounter Care Teams Machinery Dismantler Relationship Specialty Start Date End Date Veronica Maldonado MD [address] [place], [place] [address] [address] PCP - General 12/20/16 08/19/22 documented as of this encounter
--- OUTSIDE RECORDS SUMMARY | 2025-03-30 21:05 | XMS_ITS | Clinical Summary ---
Author Organization [facility] Address [address] [place] [address] Phone Care Team Providers Care Post Tensioning Ironworker Helper Name Role Phone Unavailable Primary Care Provider [...] Vaccines (#1) 2024 06/15/2009 COVID-19 Vaccine ( - season) 2025 HIB Vaccines Completed 01/23/1994, 03/13, [...]
== END 2025-03-30 11:00 | disposition home or self-care (01) ==
PROVIDERS: PCP Internal Medicine; Visit Provider Internal Medicine
DX: M54.50 Low back pain, unspecified (principal)
CPT/HCPCS: 99213